=== PATIENT | male | born 1940 | race Caucasian/White ===

== ENCOUNTER 2024-12-26 10:25 | Day surgery (SDC) | payer MEDICARE, OTHER ==
[2024-12-22 12:00] LABS: MEAN PLATELET VOLUME 9.5 FL (7.4-10.4)
[2024-12-22 12:04] LABS: RED CELL DISTRIBUTION WIDTH 19.4 % (11.5-14.5)
[2024-12-22 12:06] LABS: APTT 25 SECONDS (22-32); INR 1.1 INR
[2024-12-22 12:07] LABS: CHOL/HDL RATIO 3.1 (0.00-4.99); CREATININE 0.91 MG/DL (0.60-1.10); LDL CHOLESTEROL 89 MG/DL (50-100); TOTAL CARBON DIOXIDE 27.6 MMOL/L (24-32); eGFR 79 ML/MIN
[2024-12-22 12:23] LABS: GIANT PLATELET FEW; PLATELET ESTIMATE NORMAL
[2024-12-22 12:26] LABS: LARGE PLATELETS MODERATE
[~2024-12-26] VITALS: Ht 177.8 cm; Wt 83.6 kg
[2024-12-26] VITALS (10 sets, daily range): BP systolic 109–158; BP diastolic 59–81; PULSE 54–66; RESP 14–17; TEMP 98; O2SAT 93–96
[~2024-12-26 10:25] MED LIST: CARV-49 PO; LEVO112T52 PO; MULT-1085 PO
--- NOTE | 2024-12-26 10:54 | ELECTROCARDIOGRAPH REPORT ---
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 DAVID Castaneda Measurements Intervals [place] Rate: 72 P: 69 MS: 207 QRS: -54 QRSD: 115 T: 56 QT: 415 QTc: 455 Interpretive Statements Sinus rhythm Left anterior fascicular block Low voltage, precordial leads Electronically Signed On 12-26-2024 13:22:[address] DAVID Castaneda Please click the below link to view image of tracing.
[2024-12-26] MEDS ORDERED: heparin 1,000unit/ml 10ml vial 10 ML ONE (11:55)
[2024-12-26] MEDS ORDERED: LIDOcaine 1% (10mg/ml) 2ml vial ONE (11:55)
[2024-12-26] MEDS ORDERED: verapamil 2.5 mg/ml inj IV ONE (11:55)
[2024-12-26] MEDS ORDERED: fentaNYL/PF 50MCG/1 ML 2ML syringe ONE (11:55)
[2024-12-26] MEDS ORDERED: midazolam 1 mg/ML 2ml injection ONE (11:55)
[2024-12-26] MEDS ORDERED: nitroGLYCERIN 500mcg/5mL D5W 5 ML IV ONE (11:56)
[2024-12-26] MEDS ORDERED: ondansetron/PF 4mg/2ml inj IV PRN (14:20)
[2024-12-26] MEDS ORDERED: OXAZEpam 15mg capsule PO PRN (14:25)
[2024-12-26] MEDS ORDERED: HYDROcodone/acetaminophen 5mg/325mg tablet PO PRN (14:25)
[2024-12-26] MEDS ORDERED: HYDROcodone/acetaminophen 10/325mg tab PO PRN (14:25)
[2024-12-26] MEDS ORDERED: ASPI81TA52 PO (14:37)
[2024-12-26] MEDS ORDERED: ATOR40TA PO (14:37)
[2024-12-26] MEDS ORDERED: NITR0.4T51 SL (16:25)
--- NOTE | 2025-01-20 10:09 | CARDIOLOGY REPORT ---
DATE OF SERVICE: 12/26/2024 DICTATING PHYSICIAN: Solomon Espino MD CARDIAC CATHETERIZATION REPORT DATE OF STUDY: 12/26/2024 PROCEDURES: 1. Left heart catheterization. 2. Selective coronary angiography. 3. Left ventriculography. 4. Left subclavian and nonselective left internal mammary artery angiography. 5. Right subclavian and nonselective right internal mammary artery angiography. 6. Conscious sedation monitoring time for 15 minutes. INDICATIONS: 1. Shortness of breath. 2. Abnormal stress test. PHYSICIAN: Solomon Espino MD. DESCRIPTION OF PROCEDURE: After informed consent was obtained, the patient was brought to the cardiac clinical laboratory director in a fasting state where the patient was prepped and draped in the usual sterile manner. After adequate anesthesia was obtained using 1% lidocaine to the right wrist, a 5-Pakistani sheath was inserted into the right radial artery using a modified Seldinger technique. Thereafter, using a cocktail of heparin, verapamil and nitroglycerin, the cocktail was given via the sheath in the radial artery to prevent coronary vasospasm and for anticoagulation. Next, using an Ultimate-2 catheter, the catheter was advanced under fluoroscopy guidance into the ascending aorta. The catheter was then manipulated to engage the left coronary system and coronary angiography of the left system was obtained. Next, the catheter was disengaged and manipulated to engage the right coronary artery and selective coronary angiography of the right coronary artery was obtained. Thereafter, the catheter was disengaged from the right coronary artery and manipulated to advance into the left ventricle where left ventriculography in the GUILLEN position was obtained. The catheter was then removed. Hemostasis was obtained using the radial band. HEMODYNAMICS: For the patient's hemodynamics, please refer to the event log. Left ventricular end-diastolic pressure is 15 mmHg. FINDINGS: The left main coronary artery is a short caliber vessel free of significant disease. The left anterior descending coronary artery is a medium caliber vessel with an 80-90% proximal/ostial stenosis. The circumflex coronary artery gives off a high obtuse marginal branch with a 90% stenosis. High-grade stenosis of the proximal circumflex coronary artery is also noted. The right coronary artery has an 80% ostial/proximal stenosis. No significant stenosis in the right and left subclavian arteries are noted. Left ventriculography revealed the presence of normal left ventricular function. Left ventricular end-diastolic pressure is 15 mmHg. IMPRESSION: 1. Severe 3-vessel coronary artery disease as described above. 2. Normal left ventricular function. 3. Left ventricular end-diastolic pressure is 15 mmHg. RECOMMENDATION: Surgical revascularization. Solomon Espino MD TID: [id number] RECEIPT: [id number] LEVY/
== END 2024-12-26 17:15 | disposition home or self-care (01) ==
LOC: SSTAY O 10:25
PROVIDERS: ATTEND Student in an Organized Health Care Education/Training Program
DX: R94.39 Abnormal result of other cardiovascular function study (principal); I25.10 Atherosclerotic heart disease of native coronary artery without angina pectoris; I44.4 Left anterior fascicular block; I10 Essential (primary) hypertension; E03.9 Hypothyroidism, unspecified; M19.90 Unspecified osteoarthritis, unspecified site; Z79.890 Hormone replacement therapy; Z79.899 Other long term (current) drug therapy
CPT/HCPCS: 36415; 80048; 80061; 83695; 85025; 85610; 85730; 93005; 93458; 99152; A6258; A6402; C1894; J1644; J2003; J2250; J3010; J3490; J7030; Q0163; Q9967; Z7610; 85008

== ENCOUNTER 2025-01-13 12:56 | Emergency (ER) | payer MEDICARE, OTHER ==
[~2025-01-13] VITALS: Ht 177.8 cm; Wt 81.6 kg
[~2025-01-13 12:56] MED LIST changes: +ASPI81TA52 PO; +ATOR40TA PO; +NITR0.4T51 SL
[2025-01-13 13:05] VITALS: BP 180/94; PULSE 91; RESP 18; O2SAT 95
[2025-01-13] MEDS ORDERED: SULF1TAB49 PO (13:41)
--- NOTE | 2025-01-13 13:41 | Physician Documentation ---
History of Present Illness ~ Chief Complaint: Leg Pain Stated Complaint: LEG PAIN Time Seen by MD: 13:14 OK to notify your PCP?: Yes Source: patient Mode of Arrival: POV Exam Limitations: no limitations HPI 84-year-old male presents for left thompson pain for the past 6 days. He reports that he was working outside and some large landscaping haim were closed but fell up against his thompson which caused a bruise. He states that the haim did not break the skin as he was wearing jeans. He denies taking any blood thinners or history of DVT or period of immobilization. He has noticed increased swelling in the left leg which is extending down into the foot as well as significant bruising down into the foot. He has no pain at the foot but does have some warmth, swelling and redness to the thompson. He reports when he is si tting still his leg throbs but when he is up and walking around it actually improves the pain. Medication Reconciliation Allergies: Coded Allergies: No Known Allergies (Unverified , 12/26/24) Scheduled Aspirin (Aspirin EC), 1 TAB PO DAILY Atorvastatin Calcium* (Lipitor*), 1 TAB PO HS Carvedilol (Coreg), 1 TAB PO Q12H, (Reported) Levothyroxine Sodium (Synthroid), 1 TAB PO DAILY, (Reported) Multivitamin (Multi Vitamin Daily), 1 TAB PO DAILY, (Reported) Sulfamethoxazole/Trimethoprim (Bactrim Ds Tablet), 1 TAB PO Q12H Scheduled PRN Nitroglycerin SL* (Nitrostat SL*), 1 TAB SL Q5MIN PRN for Chest pain Q5min PRNx3-call MD Review of Systems All Other Systems at this time: Reviewed and Negative Physical Exam Vital Signs: RN Vital Signs have been reviewed: Yes, Temperature: 98.2, Source: Oral, Heart Rate: 91, Respiratory Rate: 18, BP: 180/94, Pulse Oximetry: 95, Weight: 81.600 Pulse Oximetry Reflects: adequate oxygenation Physical Exam General: Alert, no apparent distress. HEENT: PERRL, EOMI, no injection, moist mucous membranes. Neck: Full range of motion. Respiratory: Lungs clear, no respiratory distress. Chest: No accessory muscle use. Cardiovascular: Regular rate and rhythm, no murmurs. Gastrointestinal: Soft, nontender, nondistended. Bowels sounds present. Extremities: Normal range of motion, no deformity. Neurologic: Oriented x4. Psychiatric: Normal mood and affect. Skin: Erythema, warmth, tenderness and induration approximately 6 cm in diameter to the anterior portion of his left thompson, skin intact. There is ecchymosis to his left calf which extends down into his left foot with edema. Good pulses, good sensation, good CSM of left foot. Progress Results/Orders Reviewed/noted all lab results: Yes Results/Orders Vital Signs 01/13/25 01/13/25 13:05 13:50 Temp 98.2 98.2 Pulse 91 Resp 18 B/P (MAP) 180/94 Pulse Ox 95 Medical Decision Making Additional info obtained from: old records, family Findings He is having some redness pain and warmth to the front of his left thompson which appears to be cellulitis. There was no open wound at the site. There is no clear line of demarcation and there is bruising that is healing to the lower portion of the leg and this is likely due to the hematoma that the haim caused with the hit his leg. I discussed this case with Dr. High, who also examined the patient and recommends oral antibiotics and keeping leg elevated. I prescribed Septra Ds for 7 days for the cellulitis and we discussed follow up as well as return instructions. General Diff Dx:Considerations: Include: Fracture, Hematoma Foot Diff Dx:Considerations: Include: Gout Additional Comment DVT, compartment syndrome. Departure Disposition: 01 HOME / SELF CARE / HOMELESS Impression: Primary Impression: Cellulitis Condition: Stable Discharge Instructions: Cellulitis, Adult, [id number] Additional Instructions: Keep leg elevated when you are resting and sleeping at nighttime. It will take time for the swelling to resolve as well as the bruising. Take all antibiotics as prescribed and finish the course. Follow up with her primary care provider in the next week for wound recheck and return back here for any new or worsening symptoms. Referrals: NO PRIMARY CARE PROVIDER (PCP) Prescriptions Sulfamethoxazole/Trimethoprim (Bactrim Ds Tablet) 800 Mg-160 Mg Tablet 1 TAB PO Q12H for 7 Days, #14 TAB Prov: MARISELA ARCEO STRATEGY EXECUTION CONSULTANT 01/13/25 Education Educated: Patient, Family Educated regarding: diagnosis, treatment, prognosis, need for follow up Additional Comment Medical Screen Exam This patient recieved a medical screening examination. After reviewing the individual's medical complaints with presenting symptoms and performing an appropriate physical examination, it was determined that no immediate life- threatening emergency medical condition is present. This individual is also not a women having contractions. Signature Scribe Signature: . Attestation: Scribed for Marisela Arceo by Marisela Milner NP . 01/13/25 14:17 Parts of this note were created using [employer] voice recognition software program. While efforts were made to correct any mistakes made by this voice recognition software program, nonsensical phrases may remain in this note. In addition, there may be errors and syntax, grammar, content and spelling. MARISELA ARCEOP Jan 13, 2025 13:41
[2025-01-13 13:50] VITALS: TEMP 98.2
== END 2025-01-13 13:51 | disposition home or self-care (01) ==
LOC: ER 12:57
DX: L03.116 Cellulitis of left lower limb (principal); Z79.82 Long term (current) use of aspirin; Z79.899 Other long term (current) drug therapy
CPT/HCPCS: 99283

== ENCOUNTER 2025-01-20 12:44 | Emergency (ER) | payer MEDICARE, OTHER ==
[~2025-01-20] VITALS: Ht 177.8 cm; Wt 80.1 kg
[~2025-01-20 12:44] MED LIST changes: +SULF1TAB49 PO
[2025-01-20 12:45] VITALS: TEMP 97.9
--- NOTE | 2025-01-20 14:00 | Physician Documentation ---
History of Present Illness ~ Chief Complaint: Wound Re-Check Stated Complaint: RECHECK Time Seen by MD: 12:52 HPI 84-year-old male presents to the ED to have his left lower extremity checked after have incurring a recent injury while gardening. He was initially evaluated and diagnosed with a hematoma along with cellulitis. Patient took all of the prescribed antibiotics and does not report increased pain. He actually states that the hematoma has not improved. It remains red and painful with palpation Day of Onset of Wound: Jan 20, 2025 Tetanus within 5 years?: Yes Medication Reconciliation Allergies: Coded Allergies: No Known Allergies (Unverified , 12/26/24) Scheduled Aspirin (Aspirin EC), 1 TAB PO DAILY Atorvastatin Calcium* (Lipitor*), 1 TAB PO HS Carvedilol (Coreg), 1 TAB PO Q12H, (Reported) Levothyroxine Sodium (Synthroid), 1 TAB PO DAILY, (Reported) Multivitamin (Multi Vitamin Daily), 1 TAB PO DAILY, (Reported) Sulfamethoxazole/Trimethoprim (Bactrim Ds Tablet), 1 TAB PO Q12H Scheduled PRN Nitroglycerin SL* (Nitrostat SL*), 1 TAB SL Q5MIN PRN for Chest pain Q5min PRNx3-call MD Review of Systems All Other Systems at this time: Reviewed and Negative ROS As stated above in the HPI, otherwise all systems are reviewed and negative. Physical Exam Vital Signs: Temperature: 97.9, Source: Oral, Heart Rate: 78, Respiratory Rate: 16, BP: 130/86, Pulse Oximetry: 96, Weight: 80.100 Oxygen Flow Rate: 0 Physical Exam General: Alert, no apparent distress. HEENT: PERRL, EOMI, no injection, moist mucous membranes. Extremities: Normal range of motion, no deformity. Neurologic: Oriented x4. Psychiatric: Normal mood and affect. Skin: Normal color, warm and dry. No edema, no ecchymosis. Progress Results/Orders Results/Orders Vital Signs 01/20/25 01/20/25 12:45 14:41 Temp 97.9 Pulse 78 69 Resp 16 15 B/P (MAP) 130/86 133/60 (84) Pulse Ox 96 98 O2 Flow Rate 0 Medical Decision Making Findings I evaluated this patient for both an abscess and a hematoma. I aspirated the hematoma to determine whether or not there was any purulent discharge. There was not. At this time and advised the patient to use compression in continue to elevate his legs as his hematoma resolves Differential Dx:Considerations: Include: Abscess, Cellulitis, Dressing change, Healing wound, Other Departure Disposition: 01 HOME / SELF CARE / HOMELESS Impression: Primary Impression: Hematoma Condition: Stable Discharge Instructions: Hematoma, [id number] Referrals: NO PRIMARY CARE PROVIDER (PCP) Education Educated: Patient Educated regarding: diagnosis Signature Scribe Signature: t Attestation: Scribed for Aguilar Rodriguez Benchroom Shop Optician by Aguilar Milner NP . 01/20/25 18:10 AGUILAR RODRIGUEZ NP Jan 20, 2025 14:00
[2025-01-20 14:41] VITALS: BP 133/60; PULSE 69; RESP 15; O2SAT 98
== END 2025-01-20 14:48 | disposition home or self-care (01) ==
LOC: ER 12:44
DX: S80.12XA Contusion of left lower leg, initial encounter (principal); Z79.82 Long term (current) use of aspirin; Z79.899 Other long term (current) drug therapy; X58.XXXA Exposure to other specified factors, initial encounter; Y93.89 Activity, other specified; Y92.89 Other specified places as the place of occurrence of the external cause; Y99.8 Other external cause status
CPT/HCPCS: 10160; 99284; A6449; A6266